=== PATIENT | male | born 1950 | race Caucasian/White ===

== ENCOUNTER 2022-05-01 00:47 | Emergency (ER) | payer MEDICARE, SELFPAY ==
[2022-05-01 00:55] VITALS: BP 131/77; PULSE 58; RESP 16; TEMP 36.8; O2SAT 99; BMI 26.6
--- NOTE | 2022-05-01 01:05 | ED.GENADULT ---
HPI - General Adult General Chief complaint: General Medical Stated complaint: swallowed pill, feels stuck in throat Time Seen by Provider: 05/01/22 01:05 Source: patient Mode of arrival: ambulatory Limitations: no limitations History of Present Illness HPI narrative: Patient took his usual medication Flomax about 2 hours ago feels a capsule stuck in his throat has some muffled voice never had similar incident in the past. Patient tried to swallow , drinking water and had a slices of bread without any relief no chest pain or palpitation Related Data Allergies Allergy/AdvReac Type Severity Reaction Status Date / Time No Known Allergies Allergy Verified 05/01/22 01:27 Review of Systems Review of Systems: Yes all other systems are reviewed and are negative [facility] Social History Social History Advance Directives: No Physical Exam ED Vital Signs: Vital Signs - 24 hr 05/01/22 00:55 05/01/22 01:06 Temperature 98.3 F 98.2 F Pulse Rate 58 54 Respiratory Rate 16 18 Blood Pressure 131/77 161/72 H Pulse Oximetry 99 98 Oxygen Delivery Method Room Air Room Air BMI result Body Mass Index 26.6 Appearance: Alert. Oriented X3. No acute distress. Eyes: PERRLA, No Nystagmus ENT: Pharynx normal. Oral Mucosa moist no stridor Neck: Normal inspection. Neck supple. CVS: Normal heart rate and rhythm. Pulses normal. Respiratory: No respiratory distress. Equal air entry bilateral, no wheezing/rales/rhonchi Abdomen: Soft and nontender. Bowel sounds are present, no mass palpable, no CVA tenderness Skin: Skin warm and dry. Normal skin color. Normal skin turgor. Extremities: No lower extremity edema. No calf tenderness Neuro: Oriented X 3. No motor deficit. Medical Decision Making MDM Narrative Medical decision making narrative: Patient with small capsule of Flomax feels stuck in his throat slight muffled voice able to eat and drink likely will dissolve might have very distant because of the capsule patient felt better after lidocaine viscous discharge patient home advised to follow with GI if problems continued Discharge Plan Discharge Clinical Impression: Foreign body sensation in throat Patient Disposition: Home, Self-Care Instructions: Esophageal Foreign Body (ED) Additional Instructions: Drink plenty of fluids Foreign body capsule anticipated to dissolve with time Report to ER if difficulty in breathing or swallowing Referrals: Gopal Piedra [Physician] - 2 days Interventions: ED Discharge Assessment Last Done: 05/01/22 01:53 Discharge Date/Time: 05/01/22 01:55
[2022-05-01 01:06] VITALS: BP 161/72; PULSE 54; RESP 18; TEMP 36.8; O2SAT 98
[2022-05-01] MEDS: Lidocaine HCl Viscous 2 % 15 ML SOLUTION MUCOUS MEM (01:47)
--- NOTE | 2022-05-01 01:52 | PC.NURSE ---
pt continues to report scratchy sensation in throat, medicated per provider order, provider at bedside.
== END 2022-05-01 01:55 | disposition home or self-care (01) ==
PROVIDERS: Emergency Provider Internal Medicine
DX: R09.89 Other specified symptoms and signs involving the circulatory and respiratory systems (principal)
CPT/HCPCS: 99283